=== PATIENT | male | born 1990 | race Caucasian/White ===

== ENCOUNTER 2018-07-29 22:46 | Emergency (ER) | payer BC, OTHER ==
--- NOTE | 2018-07-29 23:18 | ER Report ---
History and Physical Time Seen By MD: 23:18 Hx. of Stated Complaint: pt was playing with a pencil, had it in his ear and felt eraser pop off inside r ear HPI/ROS Placed mechanical pencil in right ear and now eraser stuck in right ear. No pain. Remainder of the 14 system rev: Yes Allergies: Coded Allergies: Sulfa (Sulfonamides) (Verified Allergy, Intermediate, RASH, 09/01/09) Home Meds Reported Medications [None] No Conflict Check, 0 Refills 09/01/09 Reviewed Nurses Notes: Yes Hx Smoking: No Exposure to Second Hand Smoke?: No Hx Substance Use Disorder: No Hx Alcohol Use: Yes (occ) Constitutional Vital Sign - Last 24 Hours 07/29/18 22:50 Temp 97.9 Pulse 62 Resp 16 Pulse Ox 96 O2 Delivery Room Air Physical Exam General Appearance: Alert, no distress. Eyes: Pupils equal and round no pallor or injection. ENT: right ear with white eraser lodged in the canal, post procedure: Tympanic membranes are normal. Medical Decision Making ED Course/Re-evaluation ED Course Foreign body removed from right ear without complication. Procedure Procedure: Foreign body removal. A right ear foreign body was removed from the right ear. The procedure was performed using a hemostat. The procedure was performed by myself. Decision to Disposition Date: Jul 29, 2018 Decision to Disposition Time: 23:44 Depart Departure Latest Vital Signs Vital Signs Date Time Temp Pulse Resp B/P (MAP) Pulse Ox O2 Delivery O2 Flow Rate FiO2 07/29/18 22:50 97.9 62 16 96 Room Air Impression: Primary Impression: Foreign body in right ear Condition: Improved Disposition: HOME OR SELF-CARE Patient Instructions: Ear Foreign Body (ED) Problem Qualifiers Primary Impression: Foreign body in right ear Encounter type: initial encounter Qualified Codes: T16.1XXA - Foreign body in right ear, initial encounter RIO SANTOS MD Jul 29, 2018 23:18
[2018-07-29 23:55] VITALS: BP 117/67
== END 2018-07-29 23:55 | disposition home or self-care (01) ==
LOC: ER 23:25
DX: T16.1XXA Foreign body in right ear, initial encounter (principal)
CPT/HCPCS: 69200; 99283